=== PATIENT | male | born 1970 | race American Indian/Alaskan Native ===

== ENCOUNTER 2017-02-21 08:01 | Emergency (ER) | payer BC ==
[2017-02-21 08:06] VITALS: BP 143/92; PULSE 87; TEMP 98; O2SAT 99
[2017-02-21 08:07] VITALS: BMI 35.7
[2017-02-21 08:27] VITALS: RESP 14
[2017-02-21 09:57] LABS: BASO # 0.1 K/uL (0.0-0.2); BASO % 0.9 % (0.0-2.0); EOS % 0.4 % (0.0-4.0); HEMATOCRIT 42.4 % (35.0-51.0); LYMPH # 2.1 K/uL (1.0-4.3); LYMPH % 34.5 % (20.0-40.0); MEAN CELL VOLUME 90.5 fl (80.0-94.0); MEAN CORPUSCULAR HEMOGLOBIN 30.1 pg (27.0-31.0); MEAN CORPUSCULAR HGB CONC 33.2 g/dL (33.0-37.0); MEAN PLATELET VOLUME 9.1 fl (7.2-11.7); MONO # 0.6 K/uL (0.0-0.8); MONO % 10.2 % (0.0-10.0); NEUT # 3.3 K/uL (1.8-7.0); NRBC % 0.2 % (0.0-0.0); RED CELL DISTRIBUTION WIDTH 14.1 % (11.5-14.5); WHITE BLOOD COUNT 6.2 K/uL (4.8-10.8)
[2017-02-21 10:56] LABS: ALB/GLOB RATIO 1.1 (1.0-2.1); ALKALINE PHOSPHATASE 76 U/L (38-126); ALT/SGPT 28 U/L (21-72); AST/SGOT 48 U/L (17-59); BILIRUBIN,TOTAL 1.7 mg/dl (0.2-1.3); BLOOD UREA NITROGEN 12 mg/dl (9-20); CALCIUM 9.5 mg/dL (8.4-10.2); CARBON DIOXIDE 25 mmol/L (22-30); CHLORIDE 105 mmol/L (98-107); GFR AFRICAN-AMERICAN > 60; POTASSIUM 5.3 MMOL/L (3.6-5.0); SODIUM 140 mmol/l (132-148); TOTAL PROTEIN 8.4 G/DL (6.3-8.2)
[2017-02-21 10:59] LABS: GLUCOSE,RANDOM 96 mg/dL (75-110)
--- NOTE | 2017-02-21 14:13 | ED PDOC ---
Lower Extremity Pain/Injury Time Seen by Provider: 02/21/17 08:15 Chief Complaint (Nursing): Lower Extremity Problem/Injury Chief Complaint (Provider): bilateral knee pain R>L History Per: Patient History/Exam Limitations: no limitations Onset/Duration Of Symptoms: Days (1) Current Symptoms Are (Timing): Still Present Severity: Moderate Additional Complaint(s): 47yo male c/o R>L but bilateral knee pain, feels similar to prior episodes of gout. Denies fever, injury, or fall. Taking OTC meds with minimal relief. Past Medical History Reviewed: Historical Data, Nursing Documentation, Vital Signs Vital Signs: Last Vital Signs Temp 98 F 02/21/17 08:23 Pulse 87 02/21/17 08:23 Resp 14 02/21/17 08:23 BP 143/92 H 02/21/17 08:23 Pulse Ox 99 02/21/17 08:23 - Medical History Other PMH: gout - Family History Family History: States: Unknown Family Hx - Social History Current smoker - smoking cessation education provided: No Alcohol: Occasional - Home Medications Home Medications: Ambulatory Orders Medication Instructions Recorded Colchicine 0.6 mg PO ONCE #1 cap 02/21/17 Indomethacin [Indocin] 50 mg PO TID PRN #9 cap 02/21/17 - Allergies Allergies/Adverse Reactions: Allergies Allergy/AdvReac Type Severity Reaction Status Date / Time shellfish derived Allergy PAIN Verified 02/21/17 08:39 Review of Systems Constitutional: Negative for: Fever, Chills, Malaise Respiratory: Negative for: Cough, Shortness of Breath Gastrointestinal: Negative for: Nausea, Vomiting Genitourinary Male: Negative for: Dysuria, Frequency Musculoskeletal: Positive for: Leg Pain. Negative for: Neck Pain, Shoulder Pain , Arm Pain, Back Pain, Hand Pain, Foot Pain Skin: Negative for: Rash, Lesions, Jaundice Physical Exam - Reviewed Nursing Documentation Reviewed: Yes Vital Signs Reviewed: Yes - Physical Exam Appears: Positive for: Well, Non-toxic, No Acute Distress Head Exam: Positive for: ATRAUMATIC, NORMAL INSPECTION, NORMOCEPHALIC Skin: Positive for: Normal Color, Warm, DRY Eye Exam: Positive for: EOMI, Normal appearance, PERRL ENT: Positive for: Normal ENT Inspection Neck: Positive for: Normal, Painless ROM Cardiovascular/Chest: Positive for: Regular Rate, Rhythm Respiratory: Positive for: CNT, Normal Breath Sounds Gastrointestinal/Abdominal: Positive for: Bowel Sounds, Soft. Negative for: Tenderness Extremity: Positive for: Tenderness (R knee +mild tenderness, mild loss active ROM, no warmth or erythema; calf and foot unremarkable b/l; L knee FROM mild tenderness no warmth or erythema) Neurologic/Psych: Positive for: Alert, Oriented. Negative for: Motor/Sensory Deficits - Laboratory Results Result Diagrams: 02/21/17 09:51 02/21/17 09:51 - ECG O2 Sat by Pulse Oximetry: 99 Medical Decision Making Medical Decision Making: workup initiated for arthralgia. Labs performed, uric acid elevated colchicine and toradol low dose ordered. XRay performed. Disposition - Clinical Impression Clinical Impression: Gout, Knee pain, acute - Patient ED Disposition Is Patient to be Admitted: No Counseled Patient/Family Regarding: Studies Performed, Diagnosis, Need For Followup, Rx Given - Disposition Referrals: Carmen Rivas MD [Staff Provider] - Disposition: Routine/Home Disposition Time: 14:00 Condition: STABLE Additional Instructions: Followup with PMD in 2-3 days for re-evaluation. Return to ER for any new or worsening symptoms, fever, weakness, pain/ swelling of knee or any concern. Use medication as directed for pain. Prescriptions: Colchicine 0.6 mg PO ONCE #1 cap Indomethacin [Indocin] 50 mg PO TID PRN #9 cap PRN Reason: Pain, Moderate (4-7) Instructions: Gout (ED), Knee Pain (ED) Forms: [facility] ([place])
[2017-02-21] MEDS ORDERED: Oxycodone/Acetaminophen 5/325 mg Tab ONE (15:17)
[2017-02-21] MEDS ORDERED: Oxycodone/Acetaminophen 5/325 mg Tab PO STA (15:18)
--- NOTE | 2017-02-21 15:49 | RAD ---
PROCEDURE: Right Knee Radiographs. HISTORY: knee pain COMPARISON: None. FINDINGS: BONES: Normal. No fracture. JOINTS: Normal. No osteoarthritis. JOINT EFFUSION: Suspicious for small suprapatellar joint effusion. OTHER FINDINGS: None. IMPRESSION: No evidence of acute fracture or dislocation. Suspicious for small suprapatellar joint effusion.
== END 2017-02-21 16:20 | disposition home or self-care (01) ==
LOC: H.ER 08:01
DX: M25.569 Pain in unspecified knee (principal); M10.9 Gout, unspecified
CPT/HCPCS: 73562; 80053; 84550; 85025; 85651; 96374; 99284; J1885

== ENCOUNTER 2017-03-02 13:33 | Observation (INO) | payer SELFPAY ==
[2017-03-02 13:34] VITALS: BMI 35.7
[2017-03-02 13:49] VITALS: PULSE 70; RESP 18; TEMP 97.7; O2SAT 96
--- NOTE | 2017-03-02 14:53 | ED PDOC ---
HPI: Psych/Substance Abuse Time Seen by Provider: 03/02/17 13:40 Chief Complaint (Nursing): Alcohol Ingestion Chief Complaint (Provider): Alcohol Ingestion History Per: EMS History/Exam Limitations: no limitations Current Symptoms Are (Timing): Still Present Modifying Factor(s): Alcohol Additional Complaint(s): 14:00 Brian Ellison is a 47 year old male that was brought to the ED via EMS after being found sleeping outside of the [facility] while intoxicated. Patient admit to drinking, has been asleep in the ED, and denies any physical complaints. Past Medical History Reviewed: Historical Data, Nursing Documentation, Vital Signs Vital Signs: Last Vital Signs Temp 97.7 F 03/02/17 13:40 Pulse 70 03/02/17 13:40 Resp 18 03/02/17 13:40 BP Pulse Ox 96 03/02/17 13:40 - Family History Family History: States: Unknown Family Hx - Home Medications Home Medications: Ambulatory Orders Medication Instructions Recorded Colchicine 0.6 mg PO ONCE #1 cap 02/21/17 Indomethacin [Indocin] 50 mg PO TID PRN #9 cap 02/21/17 - Allergies Allergies/Adverse Reactions: Allergies Allergy/AdvReac Type Severity Reaction Status Date / Time shellfish derived Allergy PAIN Verified 02/21/17 08:39 Review of Systems Review Of Systems: ROS cannot be obtained secondary to pt's inabilty to answer questions. Physical Exam - Reviewed Nursing Documentation Reviewed: Yes Vital Signs Reviewed: Yes - Physical Exam Appears: Positive for: Non-toxic, No Acute Distress (Patient is asleep, but is easily arousable to tactile stimuli) Head Exam: Positive for: ATRAUMATIC, NORMOCEPHALIC Skin: Positive for: Normal Color, Warm Neurologic/Psych: Positive for: Alert, Oriented - Laboratory Results Result Diagrams: 03/02/17 15:49 03/02/17 15:49 - ECG O2 Sat by Pulse Oximetry: 96 (RA) Pulse Ox Interpretation: Normal Medical Decision Making Medical Decision Makin:10 Impression: Alcohol Intoxication Initial Plan: * Alcohol * CMP * CBC 14:23 Patient will be placed in ED Obs due to the need for continuous monitoring. Pt with ETOH of 299 Pt sleep in ED on re-eval Scribe Attestation: Documented by Maria R Ashley, acting as a scribe for Hawa De Leon PA-C. Provider Scribe Attestation: All medical record entries made by the Scribe were at my direction and personally dictated by me. I have reviewed the chart and agree that the record accurately reflects my personal performance of the history, physical exam, medical decision making, and the department course for this patient. I have also personally directed, reviewed, and agree with the discharge instructions and disposition. ED OBSERVATION Date of observation admission: 03/02/17 Time of observation admission: 14:23 - Observation admission statement Patient is being placed in observation because:: need for continuous monitoring - Goals of Observation Goals of observation are:: clinical sobriety - Progress Note Progress Note: 03/02/17 14:23 Patient is stable. 03/02/17 16:00 Patient is stable. 03/02/17 17:30 Patient is stable. 03/02/17 19:00 Patient is stable. 03/02/17 20:23 Pt awake and ambulated to restroom. Stable for discharge Disposition - Clinical Impression Clinical Impression: Alcohol use - Patient ED Disposition Is Patient to be Admitted: No - Disposition Disposition: Routine/Home Disposition Time: 20:24 Condition: STABLE - POA Present On Arrival: None
[2017-03-02 15:56] LABS: BASO % 0.5 % (0.0-2.0); EOS % 0.7 % (0.0-4.0); HEMATOCRIT 43.7 % (35.0-51.0); LYMPH # 1.4 K/uL (1.0-4.3); LYMPH % 20.3 % (20.0-40.0); MEAN CELL VOLUME 89.1 fl (80.0-94.0); MEAN CORPUSCULAR HEMOGLOBIN 30.7 pg (27.0-31.0); MEAN CORPUSCULAR HGB CONC 34.4 g/dL (33.0-37.0); MONO # 0.5 K/uL (0.0-0.8); MONO % 6.6 % (0.0-10.0); NEUT % 71.9 % (50.0-75.0); NRBC % 0.1 % (0.0-0.0); RED CELL DISTRIBUTION WIDTH 14.4 % (11.5-14.5)
[2017-03-02 16:03] LABS: ALB/GLOB RATIO 1.4 (1.0-2.1); ALCOHOL SERUM 299 mg/dl (0-10); ALKALINE PHOSPHATASE 87 U/L (38-126); ALT/SGPT 42 U/L (21-72); AST/SGOT 27 U/L (17-59); BILIRUBIN,TOTAL 0.5 mg/dl (0.2-1.3); BLOOD UREA NITROGEN 9 mg/dl (9-20); CARBON DIOXIDE 23 mmol/L (22-30); CHLORIDE 104 mmol/L (98-107); GFR AFRICAN-AMERICAN > 60; GLUCOSE,RANDOM 89 mg/dL (75-110); POTASSIUM 4.1 MMOL/L (3.6-5.0); SODIUM 145 mmol/l (132-148); TOTAL PROTEIN 8.6 G/DL (6.3-8.2)
[2017-03-02 17:56] VITALS: BP 144/78
== END 2017-03-02 20:13 | disposition home or self-care (01) ==
LOC: H.ER 13:33 → H.EROBSV 14:23
PROVIDERS: ADMIT Emergency Medicine; ATTEND Emergency Medicine
DX: F10.129 Alcohol abuse with intoxication, unspecified (principal)
CPT/HCPCS: 36415; 80053; 85025; 99282; G0378; G0480

== ENCOUNTER 2017-04-28 11:16 | Observation (INO) | payer SELFPAY ==
[2017-04-28 11:17] VITALS: BMI 35.7
[2017-04-28 11:37] VITALS: BP 118/73; PULSE 90; RESP 18; TEMP 98; O2SAT 95
--- NOTE | 2017-04-28 12:11 | ED PDOC ---
Lower Extremity Pain/Injury Time Seen by Provider: 04/28/17 11:59 Chief Complaint (Nursing): Lower Extremity Problem/Injury Chief Complaint (Provider): Right lower extremity swelling, pain History Per: Patient History/Exam Limitations: no limitations Onset/Duration Of Symptoms: Sudden Onset Current Symptoms Are (Timing): Still Present Severity: Moderate Additional History Per: Patient Additional Complaint(s): The patient is a 47yo male, PMHx of HTN, presents to the ED for evaluation of right lower extremity pain present for the past 3 weeks. Pt reports swelling is present in his b/l lower extremities but more pronounced on the right. He reports traveling to [place] and [place] 1 month ago but denies any other foreign travels. The patient additionally denies any history of DVT or PE, also denies any cough, hemoptysis, chest pain or shortness of breath. He denies any other medical complaints. Of note, pt reports he is compliant with his HTN medications. PMD: [facility]. Headley ([facility]) - Risk Factors DVT Risk Factors: Neg: History Of DVT, History Of PE Past Medical History Reviewed: Historical Data, Nursing Documentation, Vital Signs Vital Signs: Last Vital Signs Temp 98 F 04/28/17 11:34 Pulse 90 04/28/17 11:34 Resp 18 04/28/17 11:34 BP 118/73 04/28/17 11:34 Pulse Ox 95 04/28/17 11:34 - Medical History PMH: HTN - Surgical History Surgical History: No Surg Hx - Family History Family History: States: Unknown Family Hx - Home Medications Home Medications: Ambulatory Orders Medication Instructions Recorded Colchicine 0.6 mg PO ONCE #1 cap 02/21/17 Indomethacin [Indocin] 50 mg PO TID PRN #9 cap 02/21/17 Naproxen [Naprosyn] 500 mg PO BID PRN #30 tab 04/28/17 - Allergies Allergies/Adverse Reactions: Allergies Allergy/AdvReac Type Severity Reaction Status Date / Time No Known Allergies Allergy Verified 04/28/17 11:38 Review of Systems ROS Statement: Except As Marked, All Systems Reviewed And Found Negative Cardiovascular: Negative for: Chest Pain Respiratory: Negative for: Cough, Shortness of Breath, Hemoptysis Musculoskeletal: Positive for: Other (b/l lower extremity swelling and pain) Physical Exam - Reviewed Nursing Documentation Reviewed: Yes Vital Signs Reviewed: Yes - Physical Exam Appears: Positive for: Well, Non-toxic, No Acute Distress Head Exam: Positive for: ATRAUMATIC, NORMAL INSPECTION, NORMOCEPHALIC Skin: Positive for: Normal Color, Warm, Dry. Negative for: Rash Eye Exam: Positive for: Normal appearance Neck: Positive for: Normal, Supple Cardiovascular/Chest: Positive for: Regular Rate, Rhythm Respiratory: Positive for: Normal Breath Sounds. Negative for: Respiratory Distress Pulses-Dorsalis Pedis (L): 2+ Pulses-Dorsalis Pedis (R): 2+ Gastrointestinal/Abdominal: Positive for: Normal Exam, Bowel Sounds, Soft. Negative for: Tenderness Back: Positive for: Normal Inspection. Negative for: L CVA Tenderness, R CVA Tenderness Extremity: Positive for: Normal ROM, Pedal Edema (b/l non-pitting pedal edema), Other (b/l non-pitting edema to both legs greater in R without warmth, erythema , pallor, or break in skin integrity). Negative for: Deformity Neurologic/Psych: Positive for: Alert, Oriented, Gait (steady, unassisted). Negative for: Aphasia, Facial Droop - Laboratory Results Result Diagrams: 04/28/17 13:23 04/28/17 13:23 - ECG O2 Sat by Pulse Oximetry: 95 (RA) Pulse Ox Interpretation: Normal Medical Decision Making Medical Decision Making: Time: 1205 Impression: B/l lower extremity swelling, rule out DVT Plan: -- Labs -- US Doppler b/l lower extremities -- Pt placed under ED Observation Scribe Attestation: Documented by Michaela Jorgensen acting as a scribe for GRACIELA Su Provider Attestation: All medical record entries made by the Scribe were at my direction and personally dictated by me. I have reviewed the chart and agree that the record accurately reflects my personal performance of the history, physical exam, medical decision making, and the department course for this patient. I have also personally directed, reviewed, and agree with the discharge instructions and disposition. ED OBSERVATION Discharge: Yes Date of observation admission: 04/28/17 Time of observation admission: 12:09 - Observation admission statement Patient is being placed in observation because:: Pt awaiting US Doppler b/l lower extremities results. - Progress Note Progress Note: 04/28/17 14:25 Pt. in no distress. Duplex US lower extremity: No evidence of deep venous thrombosis. Rivas's cyst as described. Pt. informed of results and instructed to f/u with PMD for further evaluation. Pt. will be prescribed Naproxen. Disposition - Clinical Impression Clinical Impression: Leg edema - Patient ED Disposition Is Patient to be Admitted: No - Disposition Disposition: Routine/Home Disposition Time: 14:30 Condition: STABLE
[2017-04-28 13:30] LABS: BASO # 0.1 K/uL (0.0-0.2); BASO % 1.3 % (0.0-2.0); EOS # 0.1 K/uL (0.0-0.7); EOS % 1.4 % (0.0-4.0); LYMPH # 2.7 K/uL (1.0-4.3); LYMPH % 43.2 % (20.0-40.0); MEAN CELL VOLUME 91.5 fl (80.0-94.0); MEAN CORPUSCULAR HGB CONC 33.9 g/dL (33.0-37.0); MEAN PLATELET VOLUME 8.7 fl (7.2-11.7); MONO # 0.8 K/uL (0.0-0.8); NEUT # 2.6 K/uL (1.8-7.0); NEUT % 41.1 % (50.0-75.0); NRBC % 0.1 % (0.0-0.0); RBC 4.51 Mil/uL (4.40-5.90); RED CELL DISTRIBUTION WIDTH 15.1 % (11.5-14.5); WHITE BLOOD COUNT 6.4 K/uL (4.8-10.8)
[2017-04-28 13:40] LABS: ALB/GLOB RATIO 1.6 (1.0-2.1); ALBUMIN 4.9 g/dL (3.5-5.0); ALT/SGPT 37 U/L (21-72); AST/SGOT 29 U/L (17-59); BLOOD UREA NITROGEN 13 mg/dl (9-20); CALCIUM 9.5 mg/dL (8.4-10.2); GFR AFRICAN-AMERICAN > 60; GFR NON-AFRICAN AMERICAN > 60
[2017-04-28 13:48] LABS: B-TYPE NATRIURETIC PEPTIDE 15.1 pg/ml (0-450)
[2017-04-28 14:00] LABS: SQUAMOUS EPITHIAL 1 /hpf (0-5); URINE BILIRUBIN NEGATIVE (NEGATIVE); URINE BLOOD NEGATIVE (NEGATIVE); URINE CLARITY CLEAR (Clear); URINE COLOR YELLOW (YELLOW); URINE GLUCOSE (UA) NEG (Normal); URINE LEUKOCYTE ESTERASE NEG Leu/uL (Negative); URINE NITRATE NEGATIVE (NEGATIVE); URINE PROTEIN NEGATIVE (NEGATIVE); URINE UROBILINOGEN 0.2-1.0 mg/dL (0.2-1.0)
--- NOTE | 2017-04-28 14:07 | US ---
PROCEDURE: Bilateral lower extremity venous duplex Doppler. HISTORY: b/l lower leg swelling COMPARISON: None available. TECHNIQUE: Bilateral common femoral, superficial femoral, popliteal and posterior tibial veins were evaluated. Flow was assessed with color Doppler, compressibility, assessment of phasic flow and augmentation response. FINDINGS: COMMON FEMORAL VEIN: Right CFV: Unremarkable. Left CFV: Unremarkable. SUPERFICIAL FEMORAL VEIN: Right SFV: Unremarkable. Left SFV: Unremarkable. POPLITEAL VEIN: Right Popliteal: Unremarkable. Left Popliteal: Unremarkable. POSTERIOR TIBIAL VEIN: Right PTV: Unremarkable. Left PTV: Unremarkable. OTHER FINDINGS: Incidental note made of a left-sided popliteal cyst which measures approximate 3 x 1.4 x 2.1 cm. IMPRESSION: No evidence of deep venous thrombosis. Rivas's cyst as described.
== END 2017-04-28 14:36 | disposition home or self-care (01) ==
LOC: H.ER 11:16 → H.EROBSV 12:09
PROVIDERS: ADMIT Emergency Medicine; ATTEND Emergency Medicine
DX: R60.0 Localized edema (principal); I10 Essential (primary) hypertension
CPT/HCPCS: 36415; 80053; 81003; 83880; 85025; 93970; 99283; G0378

== ENCOUNTER 2018-03-08 16:41 | Emergency (ER) | payer SELFPAY ==
[2018-03-08 16:42] VITALS: BMI 35.7
--- NOTE | 2018-03-08 17:48 | CT ---
PROCEDURE: CT HEAD WITHOUT CONTRAST. HISTORY: headache COMPARISON: None available. TECHNIQUE: Axial computed tomography images were obtained through the head/brain without intravenous contrast. Radiation dose: Total exam DLP = 911.36 mGy-cm. This CT exam was performed using one or more of the following dose reduction techniques: Automated exposure control, adjustment of the mA and/or kV according to patient size, and/or use of iterative reconstruction technique. FINDINGS: HEMORRHAGE: No intracranial hemorrhage. BRAIN: No mass effect or edema. No atrophy or chronic microvascular ischemic changes. VENTRICLES: Unremarkable. No hydrocephalus. CALVARIUM: Unremarkable. PARANASAL SINUSES: Unremarkable as visualized. No significant inflammatory changes. MASTOID AIR CELLS: Unremarkable as visualized. No inflammatory changes. OTHER FINDINGS: None. IMPRESSION: No intracranial mass, hemorrhage or evidence of acute infarct. Unremarkable examination.
--- NOTE | 2018-03-08 18:13 | ED PDOC ---
HPI: General Adult Time Seen by Provider: 03/08/18 17:16 Chief Complaint (Nursing): Headache Chief Complaint (Provider): Headach, Chest Pain, High Blood Pressure History Per: Patient Additional Complaint(s): 48 year old male with a history of hypertension presents to the ED complaining of headache onset 3 days ago, chest pain and elevated blood pressure onset 2 days ago. States the he takes Indomethacin but currently ran out of the medication so his blood pressure is elevated. Reports the chest pain is intermittent but currently does not have chest pain. Patient did not take any medication for headache. Denies nausea, vomiting, abdominal pain, shortness of breath, numbness or weakness. PMD: Dr. Anderson Past Medical History Reviewed: Historical Data, Nursing Documentation, Vital Signs Vital Signs: Last Vital Signs Temp 98 F 03/08/18 21:00 Pulse 88 03/08/18 21:00 Resp 18 03/08/18 21:00 BP 130/78 03/08/18 21:00 Pulse Ox 99 03/08/18 21:00 - Medical History PMH: HTN - Surgical History Surgical History: No Surg Hx - Family History Family History: States: Unknown Family Hx - Home Medications Home Medications: Ambulatory Orders Medication Instructions Recorded Colchicine 0.6 mg PO ONCE #1 cap 02/21/17 Indomethacin [Indocin] 50 mg PO TID PRN #9 cap 02/21/17 Naproxen [Naprosyn] 500 mg PO BID PRN #30 tab 04/28/17 Losartan [Cozaar] 25 mg PO QAM #14 tab 03/08/18 - Allergies Allergies/Adverse Reactions: Allergies Allergy/AdvReac Type Severity Reaction Status Date / Time No Known Allergies Allergy Verified 04/28/17 11:38 Review of Systems ROS Statement: Except As Marked, All Systems Reviewed And Found Negative Cardiovascular: Positive for: Chest Pain Gastrointestinal: Negative for: Vomiting, Abdominal Pain, Diarrhea Neurological: Positive for: Headache. Negative for: Weakness, Numbness Physical Exam - Reviewed Nursing Documentation Reviewed: Yes Vital Signs Reviewed: Yes - Physical Exam Appears: Positive for: Well, Non-toxic, No Acute Distress Head Exam: Positive for: ATRAUMATIC, NORMAL INSPECTION, NORMOCEPHALIC Skin: Positive for: Normal Color, Warm, Dry Eye Exam: Positive for: EOMI, Normal appearance, PERRL ENT: Positive for: Normal ENT Inspection Neck: Positive for: Normal, Painless ROM, Supple. Negative for: Decreased ROM Cardiovascular/Chest: Positive for: Regular Rate, Rhythm. Negative for: Murmur Respiratory: Positive for: Normal Breath Sounds. Negative for: Decreased Breath Sounds, Accessory Muscle Use, Respiratory Distress Gastrointestinal/Abdominal: Positive for: Normal Exam, Bowel Sounds, Soft. Negative for: Tenderness, Guarding, Rebound Back: Positive for: Normal Inspection. Negative for: L CVA Tenderness, R CVA Tenderness Extremity: Positive for: Normal ROM. Negative for: Tenderness, Pedal Edema, Deformity Neurologic/Psych: Positive for: Alert, Oriented (x3). Negative for: Motor/ Sensory Deficits - Laboratory Results Result Diagrams: 03/08/18 19:16 03/08/18 19:16 - ECG ECG: Positive for: Interpreted By Me, Viewed By Me ECG Rhythm: Positive for: Sinus Tachycardia, Right Bundle Branch Block Interpretation Of ECG: LVH present Rate: 103 O2 Sat by Pulse Oximetry: 100 (RA) Pulse Ox Interpretation: Normal Medical Decision Making Medical Decision Making: Time: 1729 Initial Impression: chest pain, headache, hypertension Initial Plan: --Head w/o Contrast CT --EKG --BMP --Troponin I --CBC w/ Differential --Norvasc 5mg --Tylenol 650mg --Reevaluation Time: 1746 PROCEDURE: CT HEAD WITHOUT CONTRAST. FINDINGS: HEMORRHAGE: No intracranial hemorrhage. BRAIN: No mass effect or edema. No atrophy or chronic microvascular ischemic changes. VENTRICLES: Unremarkable. No hydrocephalus. CALVARIUM: Unremarkable. PARANASAL SINUSES: Unremarkable as visualized. No significant inflammatory changes. MASTOID AIR CELLS: Unremarkable as visualized. No inflammatory changes. OTHER FINDINGS: None. IMPRESSION: No intracranial mass, hemorrhage or evidence of acute infarct. Unremarkable examination. Time: 1899 Patient signed out to Dr. Guzman pending reevaluation. Scribe Attestation: Documented by Edvin Funez, acting as a scribe for Sujit Pagan MD Provider Scribe Attestation: All medical record entries made by the Scribe were at my direction and personally dictated by me. I have reviewed the chart and agree that the record accurately reflects my personal performance of the history, physical exam, medical decision making, and the department course for this patient. I have also personally directed, reviewed, and agree with the discharge instructions and disposition. Disposition - Clinical Impression Clinical Impression: Hypertension - Patient ED Disposition Is Patient to be Admitted: Transfer of Care Doctor Will See Patient In The: Office Counseled Patient/Family Regarding: Studies Performed, Diagnosis, Need For Followup - Disposition Disposition: Transfer of Care Disposition Time: 19:00 Condition: GOOD Prescriptions: Losartan [Cozaar] 25 mg PO QAM #14 tab Instructions: High Blood Pressure in Adults Forms: [facility] (French) Patient Signed Over To: Ramses Guzman (reevaluation)
[2018-03-08 19:22] VITALS: RESP 18; TEMP 98
[2018-03-08 19:22] LABS: BASO # 0.1 K/uL (0.0-0.2); EOS % 0.5 % (0.0-4.0); HEMOGLOBIN 13.5 g/dL (12.0-18.0); LYMPH # 1.8 K/uL (1.0-4.3); LYMPH % 37.2 % (20.0-40.0); MEAN CELL VOLUME 92.1 fl (80.0-94.0); MEAN CORPUSCULAR HEMOGLOBIN 32.1 pg (27.0-31.0); MEAN CORPUSCULAR HGB CONC 34.8 g/dL (33.0-37.0); MEAN PLATELET VOLUME 8.9 fl (7.2-11.7); MONO # 0.7 K/uL (0.0-0.8); MONO % 15.3 % (0.0-10.0); NEUT # 2.2 K/uL (1.8-7.0); NRBC % 0.1 % (0.0-0.0); RBC 4.21 Mil/uL (4.40-5.90); RED CELL DISTRIBUTION WIDTH 14.2 % (11.5-14.5); WHITE BLOOD COUNT 4.9 K/uL (4.8-10.8)
[2018-03-08 19:33] LABS: BLOOD UREA NITROGEN 16 mg/dl (9-20); CALCIUM 9.3 mg/dL (8.4-10.2); GFR AFRICAN-AMERICAN > 60; GFR NON-AFRICAN AMERICAN > 60
--- NOTE | 2018-03-08 19:36 | ED PDOC ---
- Laboratory Results Result Diagrams: 03/08/18 19:16 03/08/18 19:16 - ECG O2 Sat by Pulse Oximetry: 100 (RA) Pulse Ox Interpretation: Normal Medical Decision Making Medical Decision Making: Time: 1899 Patient signed out to me by Dr. Pagan pending reevaluation. Patient's blood pressure improved and he does not have a headache or chest pain. Labs present no clinical abnormalities. He is stable for discharge. Clinical Impression: Hypertension Upon provider evaluation patient is medically stable, and requires no further treatment in the ED at this time. Patient will be discharged with Cozaar 25mg for blood pressure. Counseling was provided and all questions were answered regarding diagnosis and need for follow up with PMD. There is agreement to discharge plan. Return if symptoms persist or worsen. Scribe Attestation: Documented by Edvin Funez, acting as a scribe for Ramses Guzman MD Provider Scribe Attestation: All medical record entries made by the Scribe were at my direction and personally dictated by me. I have reviewed the chart and agree that the record accurately reflects my personal performance of the history, physical exam, medical decision making, and the department course for this patient. I have also personally directed, reviewed, and agree with the discharge instructions and disposition. Disposition - Clinical Impression Clinical Impression: Hypertension - POA Present On Arrival: None - Disposition Disposition: Routine/Home Disposition Time: 20:37 Condition: STABLE Prescriptions: Losartan [Cozaar] 25 mg PO QAM #14 tab Instructions: High Blood Pressure in Adults Forms: [facility] (Iranian)
[2018-03-08 22:04] VITALS: BP 130/78
[2018-03-09 10:21] VITALS: PULSE 103; O2SAT 100
--- NOTE | 2018-03-10 06:32 | CARD ---
APPROVED REPORT EKG Measurement Heart [id number] <Conclusion> Sinus tachycardia Incomplete right bundle branch block Minimal voltage criteria for LVH, may be normal variant Borderline ECG
== END 2018-03-08 21:00 | disposition home or self-care (01) ==
LOC: H.ER 16:41
DX: I10 Essential (primary) hypertension (principal); R07.89 Other chest pain